=== PATIENT | male | born 1995 | race American Indian/Alaskan Native ===

== ENCOUNTER 2020-12-17 20:54 | Emergency (ER) | payer SELFPAY ==
[2020-12-17 21:22] VITALS: BP 141/100
--- NOTE | 2020-12-17 21:37 | Emergency Department Report ---
ED Extremity Problem HPI - General Chief complaint: Extremity Injury, Upper Stated complaint: FINGER/HAND INJURY Time Seen by Provider: 12/17/20 21:28 Source: patient Mode of arrival: Ambulatory Limitations: No Limitations - History of Present Illness Initial comments: This is a 25-year-old male with no prior medical history presents the ED complaining of left finger/hand pain began ago on Sunday while he was playing basketball that reviewed his. Patient states he has had pain and pain is worsened localized to his fourth finger and above the fourth finger. They states he has noticed mild swelling to the finger. He denies any deformity and redness to the area. He denies any other symptoms. MD Complaint: extremity pain - Related Data Previous Rx's Medication Instructions Recorded Last Taken Type Acetaminophen/Codeine [Tylenol 1 tab PO Q6H PRN #10 tab 12/17/20 Unknown Rx /Codeine # 3 tab] Allergies Allergy/AdvReac Type Severity Reaction Status Date / Time No Known Allergies Allergy Unverified 12/17/20 21:25 ED Review of Systems ROS: Stated complaint: FINGER/HAND INJURY Other details as noted in HPI Comment: All other systems reviewed and negative ED Past Medical Hx - Past Medical History Previous Medical History?: Yes Hx Asthma: Yes - Surgical History Past Surgical History?: No - Social History Smoking Status: Never Smoker Substance Use Type: Marijuana - Medications Home Medications: Home Medications Medication Instructions Recorded Confirmed Last Taken Type Acetaminophen/Codeine [Tylenol 1 tab PO Q6H PRN #10 tab 12/17/20 Unknown Rx /Codeine # 3 tab] ED Physical Exam - General Limitations: No Limitations General appearance: alert, in no apparent distress - Head Head exam: Present: atraumatic, normocephalic - Eye Eye exam: Present: normal appearance - ENT ENT exam: Present: mucous membranes moist - Neck Neck exam: Present: normal inspection - Respiratory Respiratory exam: Present: normal lung sounds bilaterally. Absent: respiratory distress - Cardiovascular Cardiovascular Exam: Present: regular rate, normal rhythm. Absent: systolic murmur, diastolic murmur, rubs, gallop - GI/Abdominal GI/Abdominal exam: Present: soft, normal bowel sounds - Rectal Rectal exam: Present: deferred - Extremities Exam Extremities exam: Present: normal inspection, full ROM, tenderness (To palpation of the fourth finger metacarpal, mild swelling. Patient agreed to make a fist and extend and), normal capillary refill - Back Exam Back exam: Present: normal inspection, full ROM - Neurological Exam Neurological exam: Present: alert, oriented X3 - Psychiatric Psychiatric exam: Present: normal affect, normal mood - Skin Skin exam: Present: warm, dry, intact, normal color. Absent: rash ED Course Vital Signs 12/17/20 21:19 Temperature 97.6 F Pulse Rate 100 H Respiratory 16 Rate Blood Pressure 141/100 O2 Sat by Pulse 98 Oximetry ED Medical Decision Making - Radiology Data Radiology results: report reviewed, image reviewed RIGHT HAND 3 VIEWS INDICATION / CLINICAL INFORMATION: Right hand pain and swelling. Injury of right hand while playing basketball Sunday. COMPARISON: None available. FINDINGS: BONES and JOINT(S): There is an acute mildly displaced fracture through the fourth metacarpal shaft with extension through the base of the fourth metacarpal. No dislocation. No significant arthritis. SOFT TISSUES: Mild edema is seen dorsally along the hand. ADDITIONAL FINDINGS: None. IMPRESSION: Acute right fourth metacarpal fracture. Signer Name: Ronald Tapia MD Signed: 12/17/2020 10:04 PM Workstation Name: [id number] Transcribed By: ANDREA Dictated By: Ronald Tapia MD Electronically Authenticated By: Ronald Tapia MD Signed Date/Time: 12/17/202203 - Medical Decision Making 25-year-old male presents to ED with boxer fracture ED course: Right hand x-ray ordered. Right hand x-ray shows:, see report above Discussed rice protocol with patient. Discussed findings with patient. Discussed application of right ulnar gutter splint to be placed. Post-splint evaluation: Capillary refill 2 seconds, patient able to wiggle fingers, neurovascularly intact no loss of sensation. Discussed the patient and orthopedic follow-up in 2-3 days. Referrals given. From follow-up from care physician. Vital signs are normal patient is in no acute or respiratory distress. Patient states understanding all discussed complaint of follow-up. Critical care attestation.: If time is entered above; I have spent that time in minutes in the direct care of this critically ill patient, excluding procedure time. ED Disposition Clinical Impression: Fracture, metacarpal shaft Disposition: DC- TO HOME OR SELFCARE Is pt being admited?: No Does the pt Need Aspirin: No Condition: Stable Instructions: Cast or Splint Care, Adult, [id number], Metacarpal Fracture Additional Instructions: be sure to follow in 3-4 days Prescriptions: Acetaminophen/Codeine [Tylenol /Codeine # 3 tab] 1 tab PO Q6H PRN #10 tab PRN Reason: Pain , Severe (7-10) Referrals: GRETA DAVIS MD [Staff Physician] - 3-5 Days
--- NOTE | 2020-12-17 22:08 | XRay Report ---
RIGHT HAND 3 VIEWS INDICATION / CLINICAL INFORMATION: Right hand pain and swelling. Injury of right hand while playing basketball Sunday. COMPARISON: None available. FINDINGS: BONES and JOINT(S): There is an acute mildly displaced fracture through the fourth metacarpal shaft w ith extension through the base of the fourth metacarpal. No dislocation. No significant arthritis. SOFT TISSUES: Mild edema is seen dorsally along the hand. ADDITIONAL FINDINGS: None. IMPRESSION: Acute right fourth metacarpal fracture. Signer Name: Ronald Tapia MD Signed: 12/17/2020 10:04 PM Workstation Name: [id number]
== END 2020-12-17 22:37 | disposition home or self-care (01) ==
LOC: ED 20:54
DX: S62.324A Displaced fracture of shaft of fourth metacarpal bone, right hand, initial encounter for closed fracture (principal); J45.909 Unspecified asthma, uncomplicated; F12.10 Cannabis abuse, uncomplicated; Z79.899 Other long term (current) drug therapy; X58.XXXA Exposure to other specified factors, initial encounter; Y93.89 Activity, other specified; Y92.89 Other specified places as the place of occurrence of the external cause; Y99.8 Other external cause status
CPT/HCPCS: 99283